=== PATIENT | female | born 1935 | race Caucasian/White ===

== ENCOUNTER → 2016-06-30 | Outpatient (CLI) | payer MEDICARE, BC ==
[~2016-06-30] MED LIST: ALEVE 220MG220 MG PO; ASPIRIN 81M81 MG/TA2 PO; CALCIUM + D 6001 TAB PO; CENTRUM SILVER1 CTB PO; D-31000 IU PO; GLUCOPHAGE XR500 M1 PO; LANTUS SOLOS100 U/ML SQ; PRAVACHOL 20MG20 MG PO; PRINIVIL20 MG PO
== END ==
LOC: MC.RAD 07:48
DX: Z12.31 Encounter for screening mammogram for malignant neoplasm of breast (principal)

== ENCOUNTER → 2017-08-17 | Outpatient (CLI) | payer MEDICARE, BC | LOC: MC.RAD 10:00 | DX: Z12.31 Encounter for screening mammogram for malignant neoplasm of breast (principal) ==

== ENCOUNTER → 2018-08-19 | Outpatient (CLI) | payer MEDICARE, BC | LOC: MC.RAD 07:20 | DX: Z12.31 Encounter for screening mammogram for malignant neoplasm of breast (principal) ==